=== PATIENT | male | born 1980 | race Caucasian/White ===

== ENCOUNTER 2017-10-30 21:36 | Emergency (ER) | payer SELFPAY ==
[~2017-10-30] VITALS: Ht 180.3 cm; Wt 100.0 kg
[2017-10-30] MEDS ORDERED: FLEXERIL10 MG PO (22:46)
[2017-10-30] MEDS ORDERED: PERCOCET 5/31 TABLET PO (22:46)
[2017-10-30] MEDS ORDERED: NAPROSYN500 MG PO (22:46)
[2017-10-30] MEDS ORDERED: MEDROL DOSEPAK4 MG PO (22:46)
[2017-10-30 23:15] VITALS: BP 131/74
== END 2017-10-30 23:16 | disposition home or self-care (01) ==
LOC: EME 21:36
DX: M54.30 Sciatica, unspecified side (principal); M54.9 Dorsalgia, unspecified; F17.200 Nicotine dependence, unspecified, uncomplicated
CPT/HCPCS: 99281; 99284; J1100; J3010